=== PATIENT | male | born 1955 | race Native Hawaiian/Other Pacific Islander ===

== ENCOUNTER 2016-04-08 10:50 | Outpatient (CLI) | payer OTHER | END 2016-04-08 23:00 | disposition home or self-care (01) | LOC: RAD 10:50 | DX: R06.02 Shortness of breath (principal) | CPT/HCPCS: 36415; 82565; 84520; Q9963 ==

== ENCOUNTER 2016-10-16 10:11 | Outpatient (CLI) | payer OTHER | END 2016-10-16 19:42 | disposition home or self-care (01) | LOC: RAD 10:11 | DX: M81.0 Age-related osteoporosis without current pathological fracture (principal) ==

== ENCOUNTER 2017-05-31 13:51 | Emergency (ER) | payer OTHER ==
[~2017-05-31] VITALS: Ht 172.7 cm; Wt 62.6 kg
[2017-05-31 13:59] VITALS: TEMP 97.3
[2017-05-31 15:26] VITALS: BP 122/74
== END 2017-05-31 15:04 | disposition home or self-care (01) ==
LOC: ED 13:51
DX: R13.19 Other dysphagia (principal); Z87.898 Personal history of other specified conditions
CPT/HCPCS: 99283

== ENCOUNTER 2017-09-22 13:08 | Outpatient (CLI) | payer OTHER | END 2017-09-22 20:26 | disposition home or self-care (01) | LOC: RAD 13:08 | DX: M50.10 Cervical disc disorder with radiculopathy, unspecified cervical region (principal) ==

== ENCOUNTER 2017-09-24 10:24 | Outpatient (CLI) | payer OTHER | END 2017-09-24 23:25 | disposition home or self-care (01) | LOC: RAD 10:24 | DX: M25.511 Pain in right shoulder (principal) ==

== ENCOUNTER 2018-01-26 16:05 | Observation (INO) | payer OTHER ==
[~2018-01-26] VITALS: Ht 172.7 cm; Wt 75.3 kg
[2018-01-26 17:41] LABS: PLATELET COUNT 291 K/uL (142-355)
[2018-01-26 17:50] VITALS: BP 129/80; TEMP 98.9; Ht 172.7 cm; Wt 75.3 kg
[2018-01-26 17:50] LABS: POTASSIUM 3.7 mmol/L (3.6-5.2)
[2018-01-26 20:00] VITALS: BP 142/91; TEMP 98.4
[2018-01-27] VITALS: BP 141/93; TEMP 98.7
[2018-01-27] MEDS ORDERED: GABA400C2 PO (03:44)
[2018-01-27] MEDS ORDERED: MOBIC15 MG PO (03:45)
[2018-01-27] MEDS ORDERED: PANTOPRAZOLE 40MG TA PO (03:46)
[2018-01-27] MEDS ORDERED: TIZANIDINE HYDRO4 MG PO (03:46)
[2018-01-27] MEDS ORDERED: CARAFATE1 GM PO (03:47)
[2018-01-27] MEDS ORDERED: LINZESS290 MCG PO (03:48)
[2018-01-27] MEDS ORDERED: PROPRANOLOL80 MG PO (03:50)
[2018-01-27] MEDS ORDERED: LIPITOR40 MG PO (03:51)
[2018-01-27] MEDS ORDERED: NORTRIPTYLIN50 MG PO (03:52)
[2018-01-27] MEDS ORDERED: ASPIRIN 81 LOW81 MG PO (03:52)
[2018-01-27] MEDS ORDERED: LOSA50TA PO (03:53)
[2018-01-27] MEDS ORDERED: MONTELUKAST SOD10 MG PO (03:53)
[2018-01-27] MEDS ORDERED: DALIRESP500 MC1 PO (03:54)
[2018-01-27] MEDS ORDERED: THEO-24 100 MG1 CAP PO (03:54)
[2018-01-27 04:00] VITALS: BP 118/80; TEMP 98.4
[2018-01-27] MEDS ORDERED: PROVENTIL108 MCG/AC INH (04:00)
[2018-01-27] MEDS ORDERED: PULMICORT0.5 MG/2 M INH (04:01)
[2018-01-27] MEDS ORDERED: TUDORZA PR400 MCG/AC INH (04:02)
[2018-01-27] MEDS ORDERED: BROVANA15 MCG/2 M INH (04:03)
[2018-01-27 08:00] VITALS: BP 126/89; TEMP 97.9
[2018-01-27 12:00] VITALS: BP 137/89; TEMP 97.5
[2018-01-27 16:00] VITALS: BP 119/80; TEMP 98.1
== END 2018-01-27 17:00 | disposition home or self-care (01) ==
LOC: MED/SURG 16:05
PROVIDERS: ADMIT Family Medicine
DX: J09.X2 Influenza due to identified novel influenza A virus with other respiratory manifestations (principal); E86.0 Dehydration; R50.9 Fever, unspecified; R00.0 Tachycardia, unspecified; J44.9 Chronic obstructive pulmonary disease, unspecified
CPT/HCPCS: 80053; 81000; 82550; 83735; 84100; 84484; 85027; 87040; 93005; 94640; 94664; 94760; 99220; G0378; G0379; J1650; J2405

== ENCOUNTER 2018-10-27 10:58 | Outpatient (CLI) | payer OTHER ==
[~2018-10-27 10:58] MED LIST: ASPIRIN 81 LOW81 MG PO; BROVANA15 MCG/2 M INH; CARAFATE1 GM PO; DALIRESP500 MC1 PO; GABA400C2 PO; LINZESS290 MCG PO; LIPITOR40 MG PO; LOSA50TA PO; MOBIC15 MG PO; MONTELUKAST SOD10 MG PO; NORTRIPTYLIN50 MG PO; PANTOPRAZOLE 40MG TA PO; PROPRANOLOL80 MG PO; PROVENTIL108 MCG/AC INH; PULMICORT0.5 MG/2 M INH; THEO-24 100 MG1 CAP PO; TIZANIDINE HYDRO4 MG PO; TUDORZA PR400 MCG/AC INH
== END 2018-10-27 21:14 | disposition home or self-care (01) ==
LOC: RAD 10:58
DX: J44.1 Chronic obstructive pulmonary disease with (acute) exacerbation (principal)

== ENCOUNTER 2018-12-14 08:30 | Outpatient (CLI) | payer OTHER | END 2018-12-14 20:33 | disposition home or self-care (01) | LOC: RAD 08:30 | DX: M25.551 Pain in right hip (principal) ==

== ENCOUNTER 2019-02-08 09:25 | Outpatient (CLI) | payer OTHER ==
[2019-02-08 10:02] LABS: PLATELET COUNT 245 K/uL (142-355)
[2019-02-08 10:21] LABS: POTASSIUM 4.3 mmol/L (3.6-5.2)
== END 2019-02-08 19:19 | disposition home or self-care (01) ==
LOC: LABW 09:25
PROVIDERS: Specialist
DX: Z01.810 Encounter for preprocedural cardiovascular examination (principal); R93.1 Abnormal findings on diagnostic imaging of heart and coronary circulation
CPT/HCPCS: 36415; 80053; 85027

== ENCOUNTER 2019-02-18 13:10 | Emergency (ER) | payer OTHER ==
[~2019-02-18] VITALS: Ht 172.7 cm; Wt 83.5 kg
[2019-02-18 14:26] LABS: PLATELET COUNT 262 K/uL (142-355)
[2019-02-18 14:32] LABS: POTASSIUM 4.4 mmol/L (3.6-5.2); SODIUM 131 mmol/L (136-145)
[2019-02-18 14:53] LABS: PARTIAL THROMBOPLASTIN TIME 26.3 SECONDS (24.5-33.6)
[2019-02-18 17:00] VITALS: BP 121/72; TEMP 97.5
== END 2019-02-18 17:00 | disposition short-term general hospital (02) ==
LOC: ED 13:10
PROVIDERS: Student in an Organized Health Care Education/Training Program
DX: R20.0 Anesthesia of skin (principal); R00.1 Bradycardia, unspecified
CPT/HCPCS: 36415; 80053; 81000; 84484; 85027; 85610; 85730; 93005; 96360; 99284

== ENCOUNTER 2019-03-08 10:39 | Emergency (ER) | payer OTHER ==
[~2019-03-08] VITALS: Ht 172.7 cm; Wt 83.5 kg
[2019-03-08 10:49] VITALS: BP 160/92; TEMP 97.8
== END 2019-03-08 11:21 | disposition home or self-care (01) ==
LOC: ED 10:39
DX: L02.01 Cutaneous abscess of face (principal)
CPT/HCPCS: 99282

== ENCOUNTER 2019-05-04 09:17 | Outpatient (CLI) | payer OTHER | END 2019-05-04 21:57 | disposition home or self-care (01) | LOC: MRI 09:17 | DX: R42 Dizziness and giddiness (principal); G45.9 Transient cerebral ischemic attack, unspecified; W19.XXXA Unspecified fall, initial encounter ==

== ENCOUNTER 2019-11-15 11:30 | Outpatient (CLI) | payer OTHER | END 2019-11-15 23:02 | disposition home or self-care (01) | LOC: RAD 11:30 | DX: Z03.818 Encounter for observation for suspected exposure to other biological agents ruled out (principal) | CPT/HCPCS: 87635; G2023; U0003 ==

== ENCOUNTER 2019-11-30 08:56 | Outpatient (CLI) | payer OTHER | END 2019-11-30 19:04 | disposition home or self-care (01) | LOC: CT 08:56 | DX: M54.16 Radiculopathy, lumbar region (principal) ==

== ENCOUNTER 2019-12-03 17:07 | Emergency (ER) | payer OTHER ==
[~2019-12-03] VITALS: Ht 172.7 cm; Wt 83.5 kg
[2019-12-03 17:07] VITALS: TEMP 99.1
[2019-12-03 17:57] LABS: PLATELET COUNT 223 K/uL (142-355)
[2019-12-03 18:03] LABS: POTASSIUM 3.9 mmol/L (3.6-5.2)
[2019-12-03 20:30] VITALS: BP 153/97
== END 2019-12-03 20:30 | disposition home or self-care (01) ==
LOC: ED 17:10
PROVIDERS: Family Medicine
DX: J02.9 Acute pharyngitis, unspecified (principal); J06.9 Acute upper respiratory infection, unspecified; J44.9 Chronic obstructive pulmonary disease, unspecified
CPT/HCPCS: 80053; 85027; 87502; 87651; 96372; 99283; J2930

== ENCOUNTER 2019-12-30 18:44 | Emergency (ER) | payer OTHER ==
[~2019-12-30] VITALS: Ht 172.7 cm; Wt 83.5 kg
[2019-12-30 20:26] VITALS: BP 107/77; TEMP 99.6
== END 2019-12-30 20:26 | disposition home or self-care (01) ==
LOC: ED 18:44
DX: R09.89 Other specified symptoms and signs involving the circulatory and respiratory systems (principal)
CPT/HCPCS: 99283; J1610

== ENCOUNTER 2019-12-31 10:26 | Outpatient (CLI) | payer OTHER ==
[2020-01-01] MEDS ORDERED: CLOPIDOGREL75 MG PO (03:05)
[2020-01-01] MEDS ORDERED: ROBAXIN-750750 MG PO (03:06)
[2020-01-01] MEDS ORDERED: PERCOCET1 TA3 PO (03:09)
[2020-01-01] MEDS ORDERED: THEOPHYLLINE400 MG PO (05:23)
== END 2019-12-31 22:24 | disposition home or self-care (01) ==
LOC: RAD 10:26
DX: R09.89 Other specified symptoms and signs involving the circulatory and respiratory systems (principal)

== ENCOUNTER 2019-12-31 17:15 | Observation (INO) | payer OTHER ==
[~2019-12-31] VITALS: Ht 172.7 cm; Wt 76.5 kg
[2019-12-31] VITALS (9 sets, daily range): BP systolic 138–171; BP diastolic 88–102; TEMP 98.1–98.7; Ht 172.7 cm; Wt 76.5 kg
[2019-12-31 19:01] LABS: PLATELET COUNT 264 K/uL (142-355)
[2019-12-31 19:25] LABS: POTASSIUM 3.7 mmol/L (3.6-5.2)
[2020-01-01] MEDS ORDERED: CLOPIDOGREL75 MG PO (03:05)
[2020-01-01] MEDS ORDERED: ROBAXIN-750750 MG PO (03:06)
[2020-01-01] MEDS ORDERED: PERCOCET1 TA3 PO (03:09)
[2020-01-01 04:14] VITALS: BP 139/69; TEMP 97.7
[2020-01-01 04:49] LABS: PLATELET COUNT 234 K/uL (142-355)
[2020-01-01 05:06] LABS: POTASSIUM 3.3 mmol/L (3.6-5.2)
[2020-01-01] MEDS ORDERED: THEOPHYLLINE400 MG PO (05:23)
[2020-01-01 08:00] VITALS: BP 152/90; TEMP 98.1
[2020-01-01 12:00] VITALS: BP 150/83; TEMP 98.3
== END 2020-01-01 14:48 | disposition home or self-care (01) ==
LOC: ED 17:15 → MED/SURG 19:05 → ED 19:05 → MED/SURG 01-01 14:48
PROVIDERS: Family Medicine; ADMIT Family Medicine
DX: K22.719 Barrett's esophagus with dysplasia, unspecified (principal); E86.0 Dehydration; F41.8 Other specified anxiety disorders
CPT/HCPCS: 36415; 80053; 81000; 85027; 96360; 96361; 96374; 96375; 99220; 99284; G0378; J2060

== ENCOUNTER 2020-09-21 11:23 | Observation (INO) | payer OTHER ==
[~2020-09-21] VITALS: Ht 172.7 cm; Wt 79.2 kg
[~2020-09-21 11:23] MED LIST changes: +CLOPIDOGREL75 MG PO; +PERCOCET1 TA3 PO; +ROBAXIN-750750 MG PO; +THEOPHYLLINE400 MG PO
[2020-09-21 12:01] LABS: POTASSIUM 5.9 mmol/L (3.6-5.2)
[2020-09-21 15:45] VITALS: BP 138/79; TEMP 99.1; Ht 172.7 cm; Wt 79.2 kg
[2020-09-21 16:00] VITALS: BP 138/79; TEMP 99.1
[2020-09-21 17:13] LABS: SODIUM 134 mmol/L (136-145)
[2020-09-21] MEDS ORDERED: DALIRESP500 MC1 PO (18:32)
[2020-09-21] MEDS ORDERED: BROVANA15 MCG/2 M INH (18:34)
[2020-09-21 20:00] VITALS: BP 162/93; TEMP 100
--- NOTE | 2020-09-21 20:09 | NUR ---
NOTIFIED ASHKAN OF PT'S MAGNESIUM LEVEL OF 1.7. PT RECEIVING 3 GM MAGNESIUM SULFATE TO CORRECT ELECTROLTYE IMBALANCE. PHYSICIAN ALSO GAVE ORDERS FOR PROTONIX 40MG Q12H AND 1 G CARAFATE PO ONE TIME DOSE TO ALLEVIATE STOMACH DISCOMFORT. PT ALSO EDUCATED ON BEING NPO AFTER RECEIVING THE 1 GRAM CARAFATE DUE TO A ABDOMINAL ULTRASOUND IN THE AM. WILL CONTINUE TO MONITOR FOR FURTHER ACUTE CHANGES.
[2020-09-21 20:13] LABS: PLATELET COUNT 210 K/uL (142-355)
[2020-09-22] VITALS: BP 154/81; TEMP 102.7
--- NOTE | 2020-09-22 00:27 | NUR ---
ASHKAN-PHYSICIAN NOTIFIED OF PT'S TEMP OF 102.7. PHYSICIAN GAVE ORDERS TO INTIIATE ROCEPHIN 1 G IVPB Q12H , ZITHROMAX 500 MG Q24H, AND INFUSE TYLENOL 1 G IV FOR FEVER. PHYSICIAN ALSO REQUESTED TO REPEAT BLOOD CULTURES AT THIS TIME ON PT. LAB NOTIFIED AND ORDER PUT IN [employer]. ORDERS NOTED AND CARRIED OUT AT THIS TIME.
--- NOTE | 2020-09-22 01:40 | NUR ---
FILLED OUT ELECTROLYTE PROTOCOL SHEET FOR PHOSPHORUS LEVEL OF 1.7. PHARM-D HAS PHOSPHORUS LEVEL TO BE REPLACED AT 0900 AM ON 09/22/2020. WILL PASS THIS NEW ACUTE CHNAGE ALONG IN REPORT IN THE AM.
[2020-09-22 01:50] LABS: PLATELET COUNT 185 K/uL (142-355)
[2020-09-22 02:20] LABS: POTASSIUM 3.7 mmol/L (3.6-5.2)
[2020-09-22 04:00] VITALS: BP 118/70; TEMP 98.5
--- NOTE | 2020-09-22 04:00 | NUR ---
LATEST CMP RESULTS VERIFIED MAGNESIUM LEVEL HAS RESOLVED TO 2.3 AND PT. CURRENTLY HAS A TEMPERATURE THAT HAS BEEN RESOLVED TO 98.5. PT. LAYING IN BED WITH NS INFUSING @ 80 WITH BED IN LOWEST POSITION IN A LOW FOWLERS POSITION WITH CALL LIGHT WITHIN REACH. NO S/S OF ACUTE DISTRESS NOTED AT THIS TIME. WILL MONITOR FOR ANY FURTHER ACUTE CHANGES.
--- NOTE | 2020-09-22 04:50 | NUR ---
FAXED ELECTROLYTE PROTOCOL SHEET FOR PHOSPHORUS REPLACEMENT TO IN-HOUSE PHARMACY AT THIS TIME TO ADDRESS IN THE AM.
[2020-09-22 08:00] VITALS: BP 147/93; TEMP 97.9
--- NOTE | 2020-09-22 08:25 | NUR ---
PATIENT IN BED SHIVERING. PATIENT'S TEMP REASSESSED AT THIS TIME AND ORAL TEMP IS 101.1. NOTIFIED DR. LUTHER OF SAME AND PROVIDED PHYSICIAN WITH AM LABS. RECEIVED A NEW ORDER FOR TYLENOL 1GM IVP X1 DOSE NOW, NOTED AND CARRIED OUT.
--- NOTE | 2020-09-22 08:40 | NUR ---
PROVIDED PHYSICIAN DR. MARYANN IBANEZ'S CONTACT INFO OF [phone]. PATIENT C/O OF NOT BEING ABLE TO BREATH, SPO2 ON ROOM AIR 94%. PT PLACED ON NC 2LPM AND NOTIFIED DR. LUTHER OF SAME. NO NEW ORDERS RECEIVED AT THIS TIME.
--- NOTE | 2020-09-22 08:56 | NUR ---
RT CALLED TO ROOM TO ASSESS PT DUE TO PT COMPLAINT OF SOB. UPON RT ARRIVAL NURSING PLACING PT ON O2. RA SPO2 AT 93-94% HR AT 118. NURSING RELAYED PT HAS SPIKED A FEVER. PT IS SHAKY AND VISIBLY HITTING HIS CHEST. BBS ARE DIMINSIHED/CLEAR. PT JUST RECIEVED A NEB TX APPROX 20-30 MINS AGO. RT INSTRUCTED PT TO PURSE LIP BREATING EXERCISE. PT SEEMS TO BE MORE ANXIOUS.
--- NOTE | 2020-09-22 09:46 | NUR ---
RADIOLOGY AT BEDSIDE OBTAINING US OF ABDOMEN.
[2020-09-22 12:00] VITALS: BP 124/74; TEMP 99.3
--- NOTE | 2020-09-22 13:20 | NUR ---
DR. LUTHER ORDERED PATIENT TO BE TRANSFERRED TO [facility] IN [place]. CALLED TRANSFER LINE AND PROVIDED THE REQUIRED INFORMATION. TRANSFER SAFETY ENGINEER ADVISED [facility] HOSPITALIST WILL NOTIFY TRANSFERRING PHYSICIAN DIRECTLY. NOTIFIED DR. LUTHER OF SAME.
--- NOTE | 2020-09-22 13:30 | NUR ---
DR. LUTHER ADVISED DR. SMALL OF [facility] ACCEPTED PATIENT.
--- NOTE | 2020-09-22 15:24 | NUR ---
CALLED [facility] TRANSFER LINE TO CHECK STATUS OF ROOM ASSIGNMENT. SHANAE, TRANSFER CUFF SETTER LOCKSTITCH, ADVISED NO BED IS AVAILABLE AT THIS TIME AND IS UNABLE TO ADVISE WHEN A BED WILL BE AVAILABLE. INFORMED DR. LUTHER OF [facility].
--- NOTE | 2020-09-22 15:35 | NUR ---
PER DR. LUTHER'S VERBAL INSTRUCTIONS, CALLED [facility] TRANSFER LINE TO INQUIRE ABOUT POSSIBLE TRANSFER. TRANSFER DOUBLER OPERATOR ADVISED BOTH C[facility] ARE AT [place], NOTIFIED DR. LUTHER OF SAME.
--- NOTE | 2020-09-22 15:45 | NUR ---
SPOKE WITH PATIENT OF POSSIBLE TRANSFER TO [place] OR [place]. PATIENT BECAME UPSET AND REFUSED TO ANSWER ANY QUESTIONS UNTIL HE RECEIVED SOMETHING TO DRINK, REPORTED SAME TO DR. LUTHER. PHYSICIAN ADVISED TO PROVIDE WATER MI GATORADE TO PATIENT. WATER WITH ICE CHIPS OFFERED AND ACCEPTED BY PATIENT. PATIENT REQUESTED RN [facility] TO UPDATE HIS DAUGHTER, TRAY, OF REASON FOR TRANSFER.
--- NOTE | 2020-09-22 15:51 | NUR ---
CALLED RUCHI, PATIENT'S DAUGHTER, @ [phone] AND LEFT VOICE MAIL.
[2020-09-22 16:00] VITALS: BP 140/70; TEMP 98.2
--- NOTE | 2020-09-22 16:35 | NUR ---
SHANAE OF [facility] @ [facility] TRANSFER LINE CALLED AND ADVISED BED IS AVAILABLE. PATIENT WILL BE ADMITTED TO [facility] BED #380, REPORT IS TO BE CALLED TO [phone]. INFORMED DR. LUTHER OF [facility].
--- NOTE | 2020-09-22 17:00 | NUR ---
DR. LUTHER AT BEDSIDE WITH PATIENT.
--- NOTE | 2020-09-22 17:15 | NUR ---
REPORT CALLED TO NURSE DAO AT [facility]. RECEIVING NURSE DENIES ANY QUESTIONS OR C/O AT THIS TIME.
--- NOTE | 2020-09-22 17:25 | NUR ---
EMS NOTIFIED OF TRANSFER.
--- NOTE | 2020-09-22 18:20 | NUR ---
REVIEWED DISCHARGE INSTRUCTIONS WITH PATIENT. PATIENT V/O UNDERSTANDING. EMS AT BEDSIDE TO TRANSPORT PATIENT TO [facility]. ASSISTED PATIENT TO EMS STRETCHER AND QUAD CANE PLACED ON STRETCHER WITH PATIENT. PATIENT DENIES ANY PAIN, NEEDS OR C/O AT THIS TIME. NAD NOTED WITH PATIENT AT THIS TIME.
== END 2020-09-22 18:20 | disposition short-term general hospital (02) ==
LOC: INF 11:23 → MED/SURG 14:20
PROVIDERS: ADMIT Family Medicine; ATTEND Family Medicine
DX: K29.00 Acute gastritis without bleeding (principal); R10.32 Left lower quadrant pain; E87.5 Hyperkalemia; E86.0 Dehydration; G89.29 Other chronic pain; I10 Essential (primary) hypertension; D72.818 Other decreased white blood cell count
CPT/HCPCS: 36415; 36591; 80053; 81000; 82150; 82248; 82550; 83690; 83735; 84100; 84443; 84484; 85027; 85379; 87040; 87635; 93005; 94640; 94664; 94760; 96360; 96361; 96365; 96367; 96375; 99220; G0378; J0132; J0456; J0696; J2405; J3475; J3480; J3490; Q9963; U0003